=== PATIENT | female | born 1995 | race Caucasian/White ===

== ENCOUNTER 2017-03-28 03:14 | Emergency (ER) | payer OTHER ==
[~2017-03-28] VITALS: Ht 165.1 cm; Wt 59.1 kg
[~2017-03-28 03:14] MED LIST: OSCAL 500 TAB500 MG PO; VITAMIN D31000 IU PO
[2017-03-28 03:18] VITALS: BP 132/98; TEMP 98.2
[2017-03-28] MEDS ORDERED: VITAMIN D31000 I1 PO (03:23)
[2017-03-28 04:28] VITALS: PULSE 68
== END 2017-03-28 04:29 | disposition home or self-care (01) ==
LOC: COL.ER 03:14
DX: R51 Headache (principal); Z88.0 Allergy status to penicillin